=== PATIENT | male | born 1990 | race Caucasian/White ===

== ENCOUNTER 2016-12-08 10:48 | Emergency (ER) | payer BC ==
[2016-12-08] MEDS ORDERED: LIDOCAINE 2% VISC 15 ML UDC ONE (11:35)
== END 2016-12-08 11:41 | disposition home or self-care (01) ==
LOC: ER 10:48
DX: K08.89 Other specified disorders of teeth and supporting structures (principal); K02.9 Dental caries, unspecified; K01.1 Impacted teeth; F17.210 Nicotine dependence, cigarettes, uncomplicated